=== PATIENT | male | born 1975 | race Caucasian/White ===

== ENCOUNTER 2020-02-28 12:40 | Emergency (ER) | payer SELFPAY ==
[~2020-02-28] VITALS: Ht 182.9 cm; Wt 131.5 kg
--- NOTE | 2020-02-28 13:07 | Emergency Department Note ---
History of Present Illnes History of Present Illness Chief Complaint: rectal bleeding History of Present Illness This is a 44 year old male with one week h/o black stool per rectum. Seen at [facility] earlier this week. . Onset (how long ago): week(s) Severity: moderate Duration (how long): week(s) (1) Timing of current episode: constant Progression: worsening Context: Reports recent illness Relieving factors: none Exacerbating factors: none Previous service: tests performed, re-evaluation Past Medical/Family History Physician Review I have reviewed the patient's past medical and family history. Any updates have been documented here. Past Medical History Recent Fever: No Clinical Suspicion of Infectio: No New/Unexplained Change in Ment: No Past Medical History: Hypertension Other Medical History: GASTRIC ULCERS Social History Smoking Cessation: Never Smoker Alcohol Use: None Any Illegal Drug Use: Yes (Cocaine abuse) Other Last Tetanus: UTD Review of Systems Review of Systems Constitutional: Reports no symptoms EENTM: Reports no symptoms Cardiovascular: Reports no symptoms Respiratory: Reports no symptoms Gastrointestinal: Reports other (DARK STOOL PER RECTUM) Genitourinary: Reports no symptoms Musculoskeletal: Reports no symptoms Integumentary: Reports no symptoms Neurological: Reports no symptoms Psychological: Reports no symptoms Endocrine: Reports no symptoms Hematological/Lymphatic: Reports no symptoms Physical Exam Related Data Allergies: Coded Allergies: No Known Allergies (Unverified , 05/06/17) Physical Exam CONSTITUTIONAL Constitutional: Present well-developed, Present well-nourished, Present obese HENT HENT: Present normocephalic, Present atraumatic, Present oropharynx clear/moist, Present nose normal HENT L/R: Present left ext ear normal, Present right ext ear normal EYES Eyes: Reports PERRL, Reports conjunctivae normal NECK Neck: Present ROM normal PULMONARY Pulmonary: Present effort normal, Present breath sounds normal CARDIOVASCULAR Cardiovascular: Present regular rhythm, Present heart sounds normal, Present capillary refill normal, Present normal rate GASTROINTESTINAL Abdominal: Present soft, Present nontender, Present bowel sounds normal GENITOURINARY Genitourinary: Present exam deferred SKIN Skin: Present warm, Present dry MUSCULOSKELETAL Musculoskeletal: Present ROM normal NEUROLOGICAL Neurological: Present alert, Present oriented x 3, Present no gross motor or sensory deficits PSYCHOLOGICAL Psychological: Present mood/affect normal, Present judgement normal Results Laboratory Lab results reviewed: Yes Imaging Imaging results reviewed: Yes Impressions [facility] [address] [address] Patient Name: WOO SHEPHERD MR #: [id number] : 1975 Age/Sex: 44/M Req #: [id number] Adm Physician: Ordered by: LANA RUSESLL DO Report #: [id number] Location: ER Room/Bed: Procedure: [id number] CT/CT ABDOMEN/PELVIS WO Exam Date: 02/28/20 Exam Time: 1500 REPORT STATUS: Signed EXAM: CT Abdomen and Pelvis WITHOUT intravenous contrast INDICATION: Generalized abdominal pain COMPARISON: 04/01/2015 TECHNIQUE: Abdomen and pelvis were scanned utilizing a multidetector helical scanner from the lung base to the pubic symphysis without administration of IV contrast. Coronal and sagittal reformations were obtained. Routine technique was performed. IV CONTRAST: None ORAL CONTRAST: None COMPLICATIONS: None RADIATION DOSE: Total DLP: 931 mGy*cm Dose modulation, iterative reconstruction, and/or weight based adjustment of the mA/kV was utilized to reduce the radiation dose to as low as reasonably achievable. FINDINGS: Limited evaluation due to lack of IV and oral contrast. LOWER THORAX: There is a 5 mm solid lung nodule at the left lung base, stable compared to 2015 exam. HEPATOBILIARY: No focal hepatic lesions. No biliary ductal dilatation. The gallbladder appears unremarkable. SPLEEN: No splenomegaly. PANCREAS: No focal masses or ductal dilatation. ADRENALS: 1.4 cm left medial adrenal limb nodule is noted with internal Hounsfield of approximately 1 consistent with an adenoma. Right adrenal gland is unremarkable. KIDNEYS/URETERS: Negative for hydronephrosis, perinephric stranding or obstructing calculus. PELVIC ORGANS/BLADDER: Urinary bladder is unremarkable. Prostate is within normal limits for size. PERITONEUM / RETROPERITONEUM: No free air or fluid. LYMPH NODES: No lymphadenopathy. VESSELS: Unremarkable. GI TRACT: Limited due to lack of IV and oral contrast. Normal appendix is noted. Stomach and distal colon are decompressed limiting evaluation. No surrounding inflammatory changes are identified. Negative for obstruction BONES AND SOFT TISSUES: Negative for acute osseous abnormality. No suspicious lytic or blastic lesion is identified. Soft tissues are unremarkable. IMPRESSION: Limited noncontrast CT of the abdomen and pelvis is negative for acute process. Signed by: Derik Gallardo MD on 02/28/2020 3:34 PM Dictated By: DERIK GALLARDO MD 33 Transcribed By: REGINA on 02/28/201533 COPY TO: LANA RUSSELL DO~ Procedures 12 Lead ECG Interpretation ECG Interpretation : ECG: ECG 1 Barrel Liner: Interpreted by ED physician Date: Feb 28, 2020 Time: 13:38 Prior ECG tracings: reviewed Rate: normal BPM: 95 QRS axis: normal Conduction: right bundle branch block ST segments normal: Yes T waves normal: No T wave inversion: V1, V2, V3 Pacin% capture Clinical Impression: non-specific ECG Assessment & Plan Medical Decision Making MDM Diff Dx : colitis, gastric ulcers, peptic ulcers , Cancer, colitis, hemorrhoids, fissure, av fistula Assessment & Plan Final Impression: (1) Lower GI bleed Depart Disposition: HOME, SELF-CARE LANA RUSSELL DO Feb 28, 2020 13:07
--- OUTSIDE RECORDS SUMMARY | 2020-02-28 13:51 | XMS REPORT | Clinical Summary ---
Author Author [facility] Organization [facility] Address Unknown Phone Unavailable Care Team Providers Care [facility] Nurse Name Role Phone PCP Unavailable Allergies Comments Active Allergy Reactions Severity Noted Date Tongue swelling Penicillins Swelling 04/13/2019 Medications End Date Status Medication Sig Dispensed Refills Start Date Active metFORMIN (GLUCOPHAGE) Take 500 mg 0 500 mg tablet by mouth 2 times daily (with meals). Active Omeprazole Magnesium Take 20 mg by 0 (PRILOSEC OTC) 20 mg mouth daily. delayed release tablet Active traMADol (ULTRAM) 50 mg Take 1 tablet 15 tablet 0 tabletIndications: by mouth 9 Scrotal pain every 8 hours as needed for Pain. 02/28/2019 omeprazole (PRILOSEC) 20 Take 1 30 capsule 0 0 mg delayed release capsule by 9 capsuleIndications: mouth daily Epigastric pain for 30 days. 07/15/2019 levoFLOXacin (LEVAQUIN) Take 1 tablet 10 tablet 0 500 mg tabletIndications: by mouth 9 Scrotal pain daily for 10 days. Active Problems Problem Noted Date Abnormal EKG 08/10/2017 Atypical chest pain 08/10/2017 Orthopnea 08/10/2017 Lower extremity edema 08/10/2017 Left-sided weakness 05/12/2017 Acute midline low back pain 05/12/2017 Scrotal pain Encounters Care Team Description Date Type Specialty Tamra Loja MD Scrotal pain (Primary Dx) 07/04/2019 Emergency Emergency Medicine - 07/05/2019 Carlos Stokes Camila 04/13/2019 Hospital Cardiology Encounter after 02/27/2019 Social History Date Tobacco Use Types Packs/Day Years Used Never Assessed Sex Assigned at Date Recorded Not on file Industry Job Start Date Occupation Not on file Not on file Not on file Travel End Travel History Travel Start No recent travel history available. Last Filed Vital Signs Reading Time Taken Comments Vital Sign 118/53 07/05/2019 3:00 AM [employer] Blood Pressure 74 07/05/2019 3:00 AM [employer] Pulse 36.8 C (98.3 F) 07/05/2019 3:00 AM [employer] Temperature 18 07/05/2019 3:00 AM [employer] Respiratory Rate 99% 07/05/2019 3:00 AM [employer] Oxygen Saturation - - Inhaled Oxygen Concentration - - Weight - - Height - - Body Mass Index Plan of Treatment Health Maintenance Due Date Last Done Comments IMM Influenza Seasonal 04/10/2020Apr to September (>/= 19 yrs) Procedures Comments Procedure Name Priority Date/Time Associated Diag nosis DUPLEX DOPPLER SCROTUM STAT 07/04/2019 Scrotal pain COMPLETE 11:10 PM [employer] U/S SCROTUM STAT 07/04/2019 Scrotal pain 11:10 PM [employer] BMP POC Routine 07/04/2019 10:03 PM [employer]GEMENT [employer] CHLAM/GC DNA AMPLI STAT 07/04/2019 9:50 PM [employer] IN[employer] LIVER PROFILE STAT 07/04/2019 9:50 PM [employer] URINALYSIS STAT 07/04/2019 9:50 PM [employer] URINALYSIS STAT 07/04/2019 9:50 PM [employer] IN[employer]CTOR CBC (WITHOUT STAT 07/04/2019 DIFFERENTIAL) 9:50 PM [employer] IN[employer] TRANSTHORACIC ECHO (TTE) Routine 04/13/2019 Abnor mal EKG 8:18 AM CDT Atypical chest pain Orthopnea Lower extremity edema after 02/27/2019 Results * DUPLEX DOPPLER SCROTUM COMPLETE (07/04/2019 11:10 PM H[employer]) Specimen Impressions Performed At IMPRESSION: SMS 1. No evidence of testicular torsion. 2. Right epididymitis. Associated rig ht scrotal pyocele. 3. Small left hydrocele. 4. Bilateral varicoceles. Dictated By: Roe Joyner MD, 1 09/04/2018 11:56 PM I have reviewed the study and agree wit h the findings in this report. Signed By: Michael Rivas MD, 019 12:41 AM Narrative Performed At EXAM: Scrotal Ultrasound with Duplex SMS INDICATION: right scrotal pain and s welling COMPARISON: None TECHNIQUE: Transverse and longitudinal images were obtained of the scrotum with grayscale imaging, color D oppler and spectral waveform analysis. FINDINGS: Right testis: Size: 4 x 3 x 3.1 cm, normal in s ize. Echogenicity: Normal Mass/Cysts: None Left testis: Size: 4.3 x 2.2 x 2.8 cm, normal in size. Echogenicity: Normal Mass/Cysts: None Epididymis: Appearance: Right Epididymal head 2.1 x 1.0 x 1.6 cm. The epididymal tail is boggy and shows diff usely increased vascularity The left epididymal head measures 1.1 x 0.7 x 0.9 cm. No focal lesions. Normal vascularity. Mass/Cysts: 0.2 x 0.3 x 0.2 cm ri ght epididymal head anechoic focus, consistent with a simple cyst ve rsus spermatocele. Extratesticular: Masses: None Hydrocele: Moderate right complex hydro silvina with echogenic internal nonvascular septations. Small left hydr ocele. Varicocele: Bilateral varicoceles. Doppler: Normal arterial flow to both testes and symmetrical flow on color Doppler evaluation is seen. No evidence of testicular torsion. Procedure Note Interface, Rad/Mammog In - 07/05/2019 12:46 AM [employer] EXAM: Scrotal Ultrasound with Duplex INDICATION: right scrotal pain and swelling COMPARISON: None TECHNIQUE: Transverse and longitudinal images were obtained of the scrotum with grayscale imaging, color Doppler and spectral waveform analysis. FINDINGS: Right testis: Size: 4 x 3 x 3.1 cm, normal in size. Echogenicity: Normal Mass/Cysts: None Left testis: Size: 4.3 x 2.2 x 2.8 cm, normal in size. Echogenicity: Normal Mass/Cysts: None Epididymis: Appearance: Right Epididymal head 2.1 x 1.0 x 1.6 cm. The epididymal tail is boggy and shows diffusely increased vascularity The left epididymal head measures 1.1 x 0.7 x 0.9 cm. No focal lesions. Normal vascularity. Mass/Cysts: 0.2 x 0.3 x 0.2 cm right epididymal head anechoic focus, consistent with a simple cyst versus spermatocele. Extratesticular: Masses: None Hydrocele: Moderate right complex hydrocele with echogenic internal nonvascular septations. Small left hydrocele. Varicocele: Bilateral varicoceles. Doppler: Normal arterial flow to both testes and symmetrical flow on color Doppler evaluation is seen. No evidence of testicular torsion. IMPRESSION IMPRESSION: 1. No evidence of testicular torsion. 2. Right epididymitis. Associated right scrotal pyocele. 3. Small left hydrocele. 4. Bilateral varicoceles. Dictated By: Roe Joyner MD, 07/04/2019 11:56 PM I have reviewed the study and agree with the findings in this report. Signed By: Michael Rivas MD, 07/05/2019 12:41 AM Performing Organization Address City/State/Zipcode Ph one Number SMS * U/S SCROTUM (07/04/2019 11:10 PM H[employer] IN[employer]) Specimen Impressions Performed At IMPRESSION: SMS 1. No evidence of testicular torsion. 2. Right epididymitis. Associated rig ht scrotal pyocele. 3. Small left hydrocele. 4. Bilateral varicoceles. Dictated By: Roe Joyner MD, 1 09/04/2018 11:56 PM I have reviewed the study and agree wit h the findings in this report. Signed By: Michael Rivas MD, 019 12:41 AM Narrative Performed At EXAM: Scrotal Ultrasound with Duplex [facility] INDICATION: right scrotal pain and s welling COMPARISON: None TECHNIQUE: Transverse and longitudinal images were obtained of the scrotum with grayscale imaging, color D oppler and spectral waveform analysis. FINDINGS: Right testis: Size: 4 x 3 x 3.1 cm, normal in s ize. Echogenicity: Normal Mass/Cysts: None Left testis: Size: 4.3 x 2.2 x 2.8 cm, normal in size. Echogenicity: Normal Mass/Cysts: None Epididymis: Appearance: Right Epididymal head 2.1 x 1.0 x 1.6 cm. The epididymal tail is boggy and shows diff usely increased vascularity The left epididymal head measures 1.1 x 0.7 x 0.9 cm. No focal lesions. Normal vascularity. Mass/Cysts: 0.2 x 0.3 x 0.2 cm ri ght epididymal head anechoic focus, consistent with a simple cyst ve rsus spermatocele. Extratesticular: Masses: None Hydrocele: Moderate right complex hydro silvina with echogenic internal nonvascular septations. Small left hydr ocele. Varicocele: Bilateral varicoceles. Doppler: Normal arterial flow to both testes and symmetrical flow on color Doppler evaluation is seen. No evidence of testicular torsion. Procedure Note Interface, Rad/Mammog In - 07/05/2019 12:46 AM [employer] IN[employer] EXAM: Scrotal Ultrasound with Duplex INDICATION: right scrotal pain and swelling COMPARISON: None TECHNIQUE: Transverse and longitudinal images were obtained of the scrotum with grayscale imaging, color Doppler and spectral waveform analysis. FINDINGS: Right testis: Size: 4 x 3 x 3.1 cm, normal in size. Echogenicity: Normal Mass/Cysts: None Left testis: Size: 4.3 x 2.2 x 2.8 cm, normal in size. Echogenicity: Normal Mass/Cysts: None Epididymis: Appearance: Right Epididymal head 2.1 x 1.0 x 1.6 cm. The epididymal tail is boggy and shows diffusely increased vascularity The left epididymal head measures 1.1 x 0.7 x 0.9 cm. No focal lesions. Normal vascularity. Mass/Cysts: 0.2 x 0.3 x 0.2 cm right epididymal head anechoic focus, consistent with a simple cyst versus spermatocele. Extratesticular: Masses: None Hydrocele: Moderate right complex hydrocele with echogenic internal nonvascular septations. Small left hydrocele. Varicocele: Bilateral varicoceles. Doppler: Normal arterial flow to both testes and symmetrical flow on color Doppler evaluation is seen. No evidence of testicular torsion. IMPRESSION IMPRESSION: 1. No evidence of testicular torsion. 2. Right epididymitis. Associated right scrotal pyocele. 3. Small left hydrocele. 4. Bilateral varicoceles. Dictated By: Roe Joyner MD, 07/04/2019 11:56 PM I have reviewed the study and agree with the findings in this report. Signed By: Michael Rivas MD, 07/05/2019 12:41 AM Performing Organization Address City/State/Zipcode Ph one Number SMS * POCT BMP POC docked device (07/04/2019 10:03 PM H[employer]NAG[employer] IN[employer]CTOR) Sodium POC 139 136 - 145 mmol/L [facility] Potassium POC 4.0 3.5 - 5.1 mmol/L [facility] Chloride POC 102 98 - 107 mmol/L [facility] TCO2 POC 27 21 - 32 mmol/L [facility] Urea Nitrogen 15 7 - 18 mg/dL [facility] Creatinine POC 0.9 0.6 - 1.3 mg/dL [facility] Glucose POC 113 (H) 74 - 106 mg/dL [facility] Ionized Calcium 1.20 1.15 - 1.29 mmol/L [facility] GFR, Estimated >90 >=90 mL/min/1.73 m2 [facility] Hemoglobin POC 13.3Comment: --- 12 - 16 g/dL [facility] Hematocrit POC 39.0 37.0 - 47.0 % [facility] Specimen Blood, venous Performing Organization Address [facility] one Number [facility] [address] [place] [address] * Urinalysis (07/04/2019 9:50 PM HUM[employer] MANAGEMENT INSTRUCTOR) Pathologist [facility] Color Straw Colorless, Straw, [facility] Yellow [facility] Clarity Clear Clear [facility] Spec Nye, 1.010 1.001 - 1.035 [facility] pH, Ur 7.0 5.0 - 8.0 [facility] Protein, Ur Negative Negative mg/dL [facility] Glucose, Ur Negative Negative mg/dL [facility] Ketone, Ur Negative Negative mg/dL [facility] Bilirubin, Ur Negative Negative mg/dL [facility] Nitrite, Ur Negative Negative [facility] Leukocyte Negative Negative mg/dL [facility] Blood, Ur Negative Negative mg/dL [facility] Urobilinogen, <1.0 <1.0 EU/dL [facility] Specimen Urine Performing Organization Address [facility] one Number [facility] [address] [place] [address] * Chlam/GC DNA Amplification (07/04/2019 9:50 PM HUMAN [employer]OURCE MANAGEMENT INSTRUCTOR) Pathologist [facility] Chlamydia Negative Negative [facility] trachomatis [facility] N. gonorrhoeae Negative Negative [facility] Specimen Urine - Urethra Narrative Performed At This test utilizes Hologic Aptima Combo 2 Assay for target amplification of rRNA [facility] for the qualitative detection of Chlamy raysa trachomatis and Neisseria gonorrhoeae. Performing Organization Address [facility] one Number [facility] [address] [place] [address] * Liver Profile (07/04/2019 9:50 PM HUM[employer] MANAGEMENT INSTRUCTOR) Total Protein 7.5 6.0 - 8.3 g/dL [facility] Bilirubin, 0.3 0.2 - 1.2 mg/dL [facility] Total [facility] Alkaline 87 34 - 104 U/L [facility] Phosphatase [facility] AST 9 (L) 13 - 39 U/L [facility] Direct 0.1 0.0 - 0.2 mg/dL [facility] Bilirubin [facility] ALT 12 7 - 52 U/L [facility] Albumin 4.4 4.2 - 5.5 g/dL [facility] Specimen Blood Performing Organization Address [facility] one Number [facility] [address] [place] [address] * CBC (without differential) (07/04/2019 9:50 PM HUMAN RESOURCE MANAGEMENT INSTRUCTOR) WBC 9.1 4.5 - 12.0 K/uL [facility] RBC 4.08 (L) 4.60 - 6.20 M/uL [facility] Hemoglobin 12.8 (L) 14.0 - 18.0 g/dL [facility] Hematocrit 37.9 (L) 40.0 - 54.0 % [facility] MCV 92.9 (H) 82.0 - 92.0 fL [facility] MCH 31.4 (H) 27.0 - 31.0 pg [facility] MCHC 33.8 32.0 - 36.0 g/dL [facility] RDW 40.5 35.1 - 43.9 fL [facility] Platelet 237 150 - 400 K/uL [facility] Mean Platelet 11.2 9.4 - 12.4 fL [facility] Volume [facility] Percent NRBC 0.0 % [facility] Specimen Blood Performing Organization Address [facility] one Number [facility] [address] [place] [address] [phone] * TRANSTHORACIC ECHO (TTE) (04/13/2019 8:18 AM CDT) TRANSTHORACIC Transthoracic SMS ECHO (TTE) Echo Report FAROOQ ESTES Age: 43 Gender: M : 1975 Exam Date: 04/13/2019 08:18 Exam Location: [facility] Echo Ordering Phys: FOX ABARCA Referring Phys: SINAI LOMAS Reading Phys: Stone Pritchett MD Fellow Phys: Fellow Phys: Carousel Attendant: Madeline Steele Reason For Exam: Indications: Worsening orthopnea and BLE edema - abnormal EKG, Dyspnea, other forms ICD-9 Codes: R06.09 Exam Type: TRANSTHORACIC ECHO (TTE) Procedure CPT: 07121 Addtional CPT: Ht (in): 71 BSA: 2.70 HR: 61 Rhythm: Wt (lb): 306 BP: 118 / 80 Technical Quality: Adequate with contrast History: MEASUREMENTS Normal ranges based on 95% confidence intervals for adults, some normal patients may fall outside of this range especially when indexing for BSA 2D ECHO LV Diastolic Diameter PLAX 5.2 cm 4.2-5.8 (M) / 3.8-5.2 (F) LV Systolic Diameter PLAX 3.7 cm 2.5-4.0 (M) / 2.2-3.5 (F) LV Fractional Shortening PLAX 28.9 % IVS Diastolic Thickness 0.85 cm 0.6-1.0 (M) / 0.6-0.9 (F) LVPW Diastolic Thickness 1.1 cm 0.6-1.0 (M) / 0.6-0.9 (F) LV Relative Wall Thickness 0.38 <= 0.42 LVOT Diameter 2.2 cm LA Systolic Diameter LX 3.3 cm LV Diastolic Volume MOD BP 150 cm 62-150 cm (M) / 46-106 cm (F) LV Systolic Volume MOD BP 64.6 cm 21-61 cm (M) / 14-42 cm (F) LV Ejection Fraction MOD BP 56.8 % 52-72 (M) / 54-74 (F) LV Stroke Volume MOD BP 85.2 cm LV Cardiac Output MOD BP 5195 cm/min LV Cardiac Index MOD BP 1924 cm/minm LA Volume 72.1 cm LA Volume Index 26.7 cm/m 16 - 34 cm/m LV Mass by linear method 192 g LV Mass by linear method Index 71.2 g/m DOPPLER LVOT Peak Velocity 108 cm/s LVOT Peak Gradient 4.7 mmHg LVOT Mean Velocity 66.2 cm/s LVOT Mean Gradient 2 mmHg LVOT Velocity Time Integral 22.8 cm LVOT Stroke Volume 87.6 cm Mitral E Point Velocity 101 cm/s Mitral A Point Velocity 65 cm/s Mitral E to A Ratio 1.6 TR Peak Velocity 216 cm/s TR Peak Gradient 18.7 mmHg LV E' Lateral Velocity 14.3 cm/s Mitral E to LV E' Lateral Ratio 7.1 LV E' Septal Velocity 9.5 cm/s Mitral E to LV E' Septal Ratio 10.7 FINDINGS Left Ventricle The left ventricle is normal in size. Normal LV wall thickness. LV systolic function is normal. LVEF is 55-60%. There are no regional wall motion abnormalities. There is normal LV relaxation with normal filling pressures. Right Ventricle The right ventricle is normal in size and systolic function. Right Atrium The right atrium is normal in size. Left Atrium The left atrium is normal in size. IAS Mitral Valve Structurally normal mitral valve without significant stenosis or prolapse. There is no mitral regurgitation. Aortic Valve The aortic valve opens well. There is no aortic stenosis. There is no aortic regurgitation. Tricuspid Valve Structurally normal tricuspid valve without significant stenosis. There is trace tricuspid regurgitation. Insufficient TR jet to estimate pulmonary artery systolic pressure. Pulmonic Valve Structurally normal pulmonic valve without significant stenosis. There is trace pulmonic regurgitation. Pericardium No pericardial effusion. Aorta Normal aortic root for body surface area. IVC RA pressure is 0-5 mmHg. CONCLUSIONS The left ventricle is normal in size. Normal LV wall thickness. LV systolic function is normal. LVEF is 55-60%. There are no regional wall motion abnormalities. There is normal LV relaxation with normal filling pressures. The right ventricle is normal in size and systolic function. The left atrium is normal in size. Insufficient TR jet to estimate pulmonary artery systolic pressure. RA pressure is 0-5 mmHg. No prior study for comparison. Stone Pritchett MD (Electronically Signed) Final Date: 13 April 2019 12:11 2D ECHO LV Diastolic Diameter PLAX 5.2 cm 4.2-5.8 (M) / 3.8-5.2 (F) LV Systolic Diameter PLAX 3.7 cm 2.5-4.0 (M) / 2.2-3.5 (F) LV Fractional Shortening PLAX 28.9 % IVS Diastolic Thickness 0.85 cm 0.6-1.0 (M) / 0.6-0.9 (F) LVPW Diastolic Thickness 1.1 cm 0.6-1.0 (M) / 0.6-0.9 (F) LV Relative Wall Thickness 0.38 <= 0.42 LVOT Diameter 2.2 cm LA Systolic Diameter LX 3.3 cm LV Diastolic Volume MOD BP 150 cm 62-150 cm (M) / 46-106 cm (F) LV Systolic Volume MOD BP 64.6 cm 21-61 cm (M) / 14-42 cm (F) LV Ejection Fraction MOD BP 56.8 % 52-72 (M) / 54-74 (F) LV Stroke Volume MOD BP 85.2 cm LV Cardiac Output MOD BP 5195 cm/min LV Cardiac Index MOD BP 1924 cm/minm LA Volume 72.1 cm LA Volume Index 26.7 cm/m 16 - 34 cm/m LV Mass by linear method 192 g LV Mass by linear method Index 71.2 g/m DOPPLER LVOT Peak Velocity 108 cm/s LVOT Peak Gradient 4.7 mmHg LVOT Mean Velocity 66.2 cm/s LVOT Mean Gradient 2 mmHg LVOT Velocity Time Integral 22.8 cm LVOT Stroke Volume 87.6 cm Mitral E Point Velocity 101 cm/s Mitral A Point Velocity 65 cm/s Mitral E to A Ratio 1.6 TR Peak Velocity 216 cm/s TR Peak Gradient 18.7 mmHg LV E' Lateral Velocity 14.3 cm/s Mitral E to LV E' Lateral Ratio 7.1 LV E' Septal Velocity 9.5 cm/s Mitral E to LV E' Septal Ratio 10.7 Specimen Performing Organization Address City/State/Zipcode Ph one Number SMS after 02/27/2019 Insurance Type Payer Benefit Subscriber ID Effective Phone Address Plan / Dates Group [facility] TDCJ xxxxxxx 2019 [address] [place] [address]
--- OUTSIDE RECORDS SUMMARY | 2020-02-28 13:51 | XMS REPORT | Continuity of Care Document ---
Author Author [facility] t Organization [facility] Address [address] [place] [address] Phone Unavailable Care Team Providers Care Audio Director Name Role Phone Freedom HA, Tamra Attphys Carlos Stkoes Attphys Unavailable Madeline Steele Attphys Unavailable Ag HOLLAND Attphys Unavailable Payers Payer Name Policy Type Policy Number Effective Date Expiration Date Lizy reyes [facility] CARETDCJ [id number] [place] [address] xxxxxxx 2019 00: 00:00 [facility] Problems Condition Name Condition Details Condition Category Status Onset Date Resolution Date Last Treatment Date Treating Clinician Comments Source Abnormal EKG Abnormal EKG Disease Active 2017-08-10 00:00:00 [facility] Atypical chest pain Atypical chest pain Disease Active 2017-08-10 00:00 :00 [facility] Orthopnea Orthopnea Disease Active 2017-08-10 00:00:00 [facility] Lower extremity edema Lower extremity edema Disease Active 201 02-08-31 00:00:00 [facility] Left-sided weakness Left-sided weakness Disease Active 2017-05-12 00:00 :00 [facility] Acute midline low back pain Acute midline low back pain Disease Active 2017-05-12 00:00:00 [facility] Scrotal pain Scrotal pain Disease Active [facility] Allergies, Adverse Reactions, Alerts Allergy Name Allergy Type Status Severity Reaction(s) Onset Date Inacti ve Date Treating Clinician Comments Source Penicillins Propensity to adverse reactions to drug Active Swelling 2019-04-13 00:00:00 Tongue swelling [facility] metformin DA Active SV 2018-07-18 00:00:00 [facility] levofloxacin DA Active SV 2018-07-18 00:00:00 [facility] No Known Allergies DA Active U 2015-03-12 00:00:00 [facility] Social History Social Habit Start Date Stop Date Quantity Comments Source Sex Assigned At [facility] Medications Ordered Medication Name Filled Medication Name Start Date Stop Da te Current Medication? Ordering Clinician Indication Dosage Frequency Signature (SIG) Comments Components Source metFORMIN (GLUCOPHAGE) 500 mg tablet 2019-07-05 00:46:36 Ye s 500mg Take 500 mg by mouth 2 times daily (with meals). [facility] Omeprazole Magnesium (PRILOSEC OTC) 20 mg delayed release ta blet 2019-07-05 00:46:36 Yes 20mg QD Take 20 mg by mouth daily. [facility] traMADol (ULTRAM) 50 mg tablet 2019-07-05 00:00:00 Yes Scrotal pain 50mg Take 1 tablet by mouth every 8 hours as needed for Pain. [facility] levoFLOXacin (LEVAQUIN) 500 mg tablet 2019-07-05 00:00 :00 2019-07-15 23:59:00 No Scrotal pain 500mg QD Take 1 tablet by mouth daily for 10 days. [facility] omeprazole (PRILOSEC) 20 mg delayed release capsule 2019-01-29 00:00:00 2019-02-28 23:59:00 No Epigastric pain 20mg QD Take 1 capsule by mouth daily for 30 days. [facility] Vital Signs Vital Name Observation Time Observation Value Comments Source Systolic blood pressure 2019-07-05 03:00:00 118 mm[Hg] [facility] Diastolic blood pressure 2019-07-05 03:00:00 53 mm[Hg] [facility] Heart rate 2019-07-05 03:00:00 74 /min [facility] Body temperature 2019-07-05 03:00:00 36.83 Jill [facility] Respiratory rate 2019-07-05 03:00:00 18 /min [facility] Oxygen saturation in Arterial blood by Pulse oximetry 2018-07 03:00:00 99 /min [facility] Procedures Procedure Date / Time Performed Performing Clinician Sourc e U/S SCROTUM 2019-07-04 23:10:00 Zeb Powell [facility]th DUPLEX DOPPLER SCROTUM COMPLETE 2019-07-04 23:10:00 Awa Loja [facility] BMP POC 2019-07-04 22:03:00 [facility] CBC (WITHOUT DIFFERENTIAL) 2019-07-04 21:50:00 PowellDavid [facility] URINALYSIS 2019-07-04 21:50:00 Zeb Powell [facility] URINALYSIS 2019-07-04 21:50:00 PowellZeb [facility] LIVER PROFILE 2019-07-04 [facility]AM/GC DNA AMPLI 2019-07-04 21:50:[address] [facility]TTE[facility] 2019-04-13 08:18:00 Miriam Franco [facility] Plan of Care Planned Activity Planned Date Details Comments Source Future Scheduled Test 2020-04-10 00:00:00 IMM Influenza Seas onal Apr to September (>/= 19 yrs) [code = IMM Influenza Seasonal Apr to September (>/= 19 yrs)] [facility] Encounters Start Date/Time End Date/Time Encounter Type Admission Type [facility] Facility Care Department Encounter ID Source 2019-07-04 22:30:28 2019-07-04 22:30:28 Emergency [facility] [id number] [facility] 2019-07-04 22:30:26 2019-07-04 22:30:26 Emergency [facility] [id number] [facility] 2019-07-04 17:39:47 2019-07-04 17:39:47 Emergency [facility] [id number] [facility] 2019-04-19 00:00:00 2019-04-19 00:00:00 Outpatient [facility] [id number] [facility] 2019-04-13 08:14:26 2019-04-13 08:14:26 Outpatient [facility] [id number] [facility] 2019-03-09 00:00:00 2019-03-09 00:00:00 Outpatient [facility] [id number] [facility] 2019-02-13 00:00:00 2019-02-13 00:00:00 Outpatient [facility] [id number] [facility] 2019-01-29 07:16:18 2019-01-29 07:16:18 Emergency [facility] [id number] [facility] 2017-11-02 00:00:00 2017-11-02 00:00:00 Outpatient [facility] [id number] [facility] 2017-10-25 00:00:00 2017-10-25 00:00:00 Outpatient [facility] [id number] [facility] 2017-10-10 00:00:00 2017-10-10 00:00:00 Outpatient [facility] [id number] [facility] 2017-09-30 00:00:00 2017-09-30 00:00:00 Outpatient [facility] [id number] [facility] 2017-09-26 00:00:00 2017-09-26 00:00:00 Outpatient [facility] [id number] [facility] 2017-09-13 00:00:00 2017-09-13 00:00:00 Outpatient [facility] [id number] [facility] 2017-08-31 00:00:00 2017-08-31 00:00:00 Outpatient [facility] [id number] [facility] 2017-08-31 00:00:00 2017-08-31 00:00:00 Outpatient [facility] [id number] [facility] 2017-08-25 00:00:00 2017-08-25 00:00:00 Outpatient [facility] [id number] [facility] 2017-08-10 13:35:17 2017-08-10 13:35:17 Outpatient [facility] [id number] [facility] 2017-05-13 03:56:09 2017-05-13 03:56:09 Emergency [facility] [id number] [facility] 2017-05-13 01:48:40 2017-05-13 01:48:40 Emergency [facility] [id number] [facility] 2017-05-12 19:13:59 2017-05-12 19:13:59 Emergency [facility] [id number] [facility] 2017-05-12 17:07:44 2017-05-12 17:07:44 Emergency [facility] [id number] [facility] 2017-05-12 17:07:42 2017-05-12 17:07:42 Emergency [facility] [id number] [facility] 2017-05-12 16:38:47 2017-05-12 16:38:47 Emergency [facility] [id number] [facility] 2017-05-12 16:38:44 2017-05-12 16:38:44 Emergency [facility] [id number] [facility] 2017-05-12 13:14:53 2017-05-12 13:14:53 Emergency [facility] [id number] [facility] Results Test Description Test Time Test Comments Results Result Comments Source URINALYSIS COMPLETE 2020-02-04 06:53:00 Test Item UA COLOR (test code = COLU) DARK YELLOW YELLOW A UA APPEARANCE (test code = APPU) HAZY CLEAR A UA GLUCOSE DIPSTICK (test code = DGLUU) norm mg/dL NEGATIVE UA BILIRUBIN DIPSTICK (test code = BILU) NEGATIVE mg/dL NEGATIVE UA KETONE DIPSTICK (test code = KETU) 5 (Trace) mg/dL NEGATIVE A UA SPECIFIC GRAVITY (test code = SGU) 1.025 1.001-1.035 UA BLOOD DIPSTICK (test code = AMERICO) 10 (Trace) Luan/uL NEGATIVE A UA PH DIPSTICK (test code = EUGENE) 5.0 5.0-8.0 UA PROTEIN DIPSTICK (test code = PROU) 15 (TRACE) mg/dL Neg-15 A UA UROBILINIOGEN DIPSTICK (test code = URO) 1 mg/dL 0.0-0.2 A UA NITRITE DIPSTICK (test code = ROSE) NEGATIVE NEGATIVE UA LEUKOCYTE ESTERASE DIPSTICK (test code = LEUU) 100 Nan/uL (1+) u L NEGATIVE A UA WBC (test code = WBCU) 21-50 per HPF 0-5 A UA RBC (test code = RBCU) 3-5 per HPF 0-5 A UA EPITHELIAL CELLS (test code = EPIU) Moderate (5-10/hpf) per HPF Few UA BACTERIA (test code = BACU) FEW per HPF NONE UA MUCUS (test code = MUCU) MODERATE per LPF NONE-FEW A Urine Source? Clean CatchDRUGS OF ABUSE SCREEN [id number] 06:53:00* Test Item Value Reference Range Interpretation Comments URN COCAINE (test code = COCAURN) NEGATIVE NEGATIVE URN CANNABINOIDS (test code = CANNABURN) POSITIVE NEGATIVE A URN AMPHETAMINE (test code = AMPHETURN) POSITIVE NEGATIVE A URN BARBITURATE (test code = BARBITURN) NEGATIVE NEGATIVE URN BENZODIAZEPINE (test code = BENZOURN) NEGATIVE NEGATIVE URN OPIATES (test code = OPIATURN) NEGATIVE NEGATIVE URN PHENCYCLIDINE (PCP) (test code = PHENCURN) NEGATIVE NEGATIV E Urine Source? Clean CatchBASIC METABOLIC [id number] 06:53:00* Test Item Value Reference Range Interpretation Comments SODIUM (test code = NA) 134 mmol/L 135-148 L POTASSIUM (test code = K) 3.9 mmol/L 3.5-5.1 N CHLORIDE (test code = CL) 99 mmol/L 101-109 L CARBON DIOXIDE (test code = CO2) 28.6 mmol/L 21-32 N ANION GAP (test code = GAP) 10 mmol/L 10-20 N GLUCOSE (test code = GLU) 147 mg/dL 74-106 H BLOOD UREA NITROGEN (test code = BUN) 10 mg/dL 3-21 N GLOMERULAR FILTRATION RATE (test code = GFR) > 60 mL/min >=60 Estimated GFR by using Modified MDRD formula.Chronic kidney disease is defined as either kidney damageor GFR <60 mL/min/1.73 m2 for >3 months. CREATININE (test code = CREAT) 1.17 mg/dL 0.55-1.3 N BUN/CREATININE RATIO (test code = BUN/CREA) 8.5 10-20 L CALCIUM (test code = CA) 8.6 mg/dL 8.4-10.2 N HEPATIC FUNCTION [id number] 06:53:00* Test Item Value Reference Range Interpretation Comments TOTAL PROTEIN (test code = PROT) 7.3 g/dL 6.5-8.4 N ALBUMIN (test code = ALB) 3.4 g/dL 3.4-4.8 N GLOBULIN (test code = GLOB) 3.9 G/DL 1-10 N ALBUMIN/GLOBULIN RATIO (test code = A/G) 0.9 RATIO 0.75-1.50 N BILIRUBIN TOTAL (test code = BILT) 0.40 mg/dL 0.0-1.0 N BILIRUBIN DIRECT (test code = BILD) 0.10 mg/dL 0.0-0.30 N SGOT/AST (test code = AST) 16 U/L 6-32 N SGPT/ALT (test code = ALT) 39 U/L 12-78 N N ote: Change in REFERENCE RANGE due to new reagent method. ALKALINE PHOSPHATASE TOTAL (test code = ALKP) 104 U/L 38-126 N [id number] 06:53:00* Test Item Value Reference Range Interpretation Comments LIPASE (test code = LIP) 203 U/L 128-270 N [id number] 06:53:00* Test Item Value Reference Range Interpretation Comments MAGNESIUM (test code = MAG) 2.0 mg/dL 1.6-2.3 N [id number] 06:53:00* Test Item Value Reference Range Interpretation Comments TROPONIN-I (test code = TROPI) <0.015 ng/mL 0.00-0.056 N URINALYSIS [id number] 06:52:00* Test Item Value Reference Range Interpretation Comments UA COLOR (test code = COLU) DARK YELLOW YELLOW A UA APPEARANCE (test code = APPU) HAZY CLEAR A UA GLUCOSE DIPSTICK (test code = DGLUU) norm mg/dL NEGATIVE UA BILIRUBIN DIPSTICK (test code = BILU) NEGATIVE mg/dL NEGATIVE UA KETONE DIPSTICK (test code = KETU) 5 (Trace) mg/dL NEGATIVE A UA SPECIFIC GRAVITY (test code = SGU) 1.025 1.001-1.035 UA BLOOD DIPSTICK (test code = AMERICO) 10 (Trace) Luan/uL NEGATIVE A UA PH DIPSTICK (test code = EUGENE) 5.0 5.0-8.0 UA PROTEIN DIPSTICK (test code = PROU) 15 (TRACE) mg/dL Neg-15 A UA UROBILINIOGEN DIPSTICK (test code = URO) 1 mg/dL 0.0-0.2 A UA NITRITE DIPSTICK (test code = ROSE) NEGATIVE NEGATIVE UA LEUKOCYTE ESTERASE DIPSTICK (test code = LEUU) 100 Nan/uL (1+) u L NEGATIVE A UA WBC (test code = WBCU) 21-50 per HPF 0-5 A UA RBC (test code = RBCU) 3-5 per HPF 0-5 A UA EPITHELIAL CELLS (test code = EPIU) Moderate (5-10/hpf) per HPF Few UA BACTERIA (test code = BACU) FEW per HPF NONE UA MUCUS (test code = MUCU) MODERATE per LPF NONE-FEW A Urine Source? Clean CatchDRUGS OF ABUSE SCREEN [id number] 06:52:00* Test Item Value Reference Range Interpretation Comments URN COCAINE (test code = COCAURN) NEGATIVE URN CANNABINOIDS (test code = CANNABURN) NEGATIVE URN AMPHETAMINE (test code = AMPHETURN) NEGATIVE URN BARBITURATE (test code = BARBITURN) NEGATIVE URN BENZODIAZEPINE (test code = BENZOURN) NEGATIVE URN OPIATES (test code = OPIATURN) NEGATIVE URN PHENCYCLIDINE (PCP) (test code = PHENCURN) NEGATIV E Urine Source? Clean CatchB-TYPE NATRIURETIC [id number] 06:52:00* Test Item Value Reference Range Interpretation Comments B-TYPE NATRIURETIC PEPTIDE (test code = BNP) < 5.0 pg/mL 0-100 N URINALYSIS [id number] 06:48:00* Test Item Value Reference Range Interpretation Comments UA COLOR (test code = COLU) DARK YELLOW YELLOW A UA APPEARANCE (test code = APPU) HAZY CLEAR A UA GLUCOSE DIPSTICK (test code = DGLUU) norm mg/dL NEGATIVE UA BILIRUBIN DIPSTICK (test code = BILU) NEGATIVE mg/dL NEGATIVE UA KETONE DIPSTICK (test code = KETU) 5 (Trace) mg/dL NEGATIVE A UA SPECIFIC GRAVITY (test code = SGU) 1.025 1.001-1.035 UA BLOOD DIPSTICK (test code = AMERICO) 10 (Trace) Luan/uL NEGATIVE A UA PH DIPSTICK (test code = EUGENE) 5.0 5.0-8.0 UA PROTEIN DIPSTICK (test code = PROU) 15 (TRACE) mg/dL Neg-15 A UA UROBILINIOGEN DIPSTICK (test code = URO) 1 mg/dL 0.0-0.2 A UA NITRITE DIPSTICK (test code = ROSE) NEGATIVE NEGATIVE UA LEUKOCYTE ESTERASE DIPSTICK (test code = LEUU) 100 Nan/uL (1+) u L NEGATIVE A UA WBC (test code = WBCU) per HPF 0-5 UA RBC (test code = RBCU) per HPF 0-5 UA EPITHELIAL CELLS (test code = EPIU) per HPF Few UA BACTERIA (test code = BACU) per HPF NONE Urine Source? Clean CatchDRUGS OF ABUSE SCREEN [id number] 06:48:00* Test Item Value Reference Range Interpretation Comments URN COCAINE (test code = COCAURN) NEGATIVE URN CANNABINOIDS (test code = CANNABURN) NEGATIVE URN AMPHETAMINE (test code = AMPHETURN) NEGATIVE URN BARBITURATE (test code = BARBITURN) NEGATIVE URN BENZODIAZEPINE (test code = BENZOURN) NEGATIVE URN OPIATES (test code = OPIATURN) NEGATIVE URN PHENCYCLIDINE (PCP) (test code = PHENCURN) NEGATIV E Urine Source? Clean CatchBASIC METABOLIC [id number] 06:41:00* Test Item Value Reference Range Interpretation Comments SODIUM (test code = NA) 134 mmol/L 135-148 L POTASSIUM (test code = K) 3.9 mmol/L 3.5-5.1 N CHLORIDE (test code = CL) 99 mmol/L 101-109 L CARBON DIOXIDE (test code = CO2) 28.6 mmol/L 21-32 N ANION GAP (test code = GAP) 10 mmol/L 10-20 N GLUCOSE (test code = GLU) 147 mg/dL 74-106 H BLOOD UREA NITROGEN (test code = BUN) 10 mg/dL 3-21 N GLOMERULAR FILTRATION RATE (test code = GFR) > 60 mL/min >=60 Estimated GFR by using Modified MDRD formula.Chronic kidney disease is defined as either kidney damageor GFR <60 mL/min/1.73 m2 for >3 months. CREATININE (test code = CREAT) 1.17 mg/dL 0.55-1.3 N BUN/CREATININE RATIO (test code = BUN/CREA) 8.5 10-20 L CALCIUM (test code = CA) 8.6 mg/dL 8.4-10.2 N HEPATIC FUNCTION [id number] 06:41:00* Test Item Value Reference Range Interpretation Comments TOTAL PROTEIN (test code = PROT) gram/dL 6.4-8.2 ALBUMIN (test code = ALB) g/dL 3.4-5.0 GLOBULIN (test code = GLOB) g/dL 2.7-4.2 ALBUMIN/GLOBULIN RATIO (test code = A/G) 0.75-1.50 BILIRUBIN TOTAL (test code = BILT) mg/dL 0.2-1.2 BILIRUBIN DIRECT (test code = BILD) mg/dL 0.0-0.20 SGOT/AST (test code = AST) IUnit/L 15-37 SGPT/ALT (test code = ALT) U/L 10-69 ALKALINE PHOSPHATASE TOTAL (test code = ALKP) IUnit/L 45-117 [id number] 06:41:00* Test Item Value Reference Range Interpretation Comments LIPASE (test code = LIP) Unit/L 144-286 [id number] 06:41:00* Test Item Value Reference Range Interpretation Comments MAGNESIUM (test code = MAG) mg/dL 1.8-2.4 [id number] 06:41:00* Test Item Value Reference Range Interpretation Comments TROPONIN-I (test code = TROPI) ng/mL 0-0.045 - XR CHEST 1 [id number] 06:35:00 Name: SHANIKA SHEPHERD [facility] : 1975 Age/S:44 /M [address] [facility] Unit#:[id number] Loc: [place] [address] Phys: Osmar Alva MD Dis Date: PHONE #: [phone] Status: PRE ER FAX #: [phone] Exam Date: 02/04/2020 Reason: CHEST PAIN EXAMS: CPT CODE: [id number] XR CHEST 1 V 37007 EXAM: - XR CHEST 1 V LOCATION: C3 HISTORY: CHEST PAIN COMPARISON: 07/12/2018 FINDINGS: Single view of the chest. No indwelling lines or tubes. No pneumothorax. The lungs are clear without significant effusions. The mediastinal contours are unremarkable/unchanged. No acute osseous findings are present. IMPRESSION: No acute cardiopulmonary abnormality. at 0635 Reported and signed by: Moose Hernandez M.D. CC: Osmar Alva MD Technologist: RADHA WASHINGTON CT Trnscrpt Data: 02/04/2020 (0635) [email or web address] Orig Print D/T: S: 02/04/2020 (0601) PAGE 1 Signed Report CBC W/O [id number] 06:30:00* Test Item Value Reference Range Interpretation Comments WHITE BLOOD CELL (test code = WBC) 9.7 K/mm3 4.5-12.5 N RED BLOOD CELL (test code = RBC) 5.42 mill/mm3 4.0-5.8 N HEMOGLOBIN (test code = HGB) 17.4 gram/dL 13.0-17.5 N HEMATOCRIT (test code = HCT) 49.3 % 42.0-52.0 N MEAN CELL VOLUME (test code = MCV) 91.0 fL 80-98 N MEAN CELL HGB (test code = MCH) 32.1 picogram 27.0-33.0 N MEAN CELL HGB CONCETRATION (test code = MCHC) 35.3 gram/dL 33.0-36. 0 N RED CELL DISTRIBUTION WIDTH (test code = RDW) 12.0 % 11.6-16. 2 N RED CELL DISTRIBUTION WIDTH SD (test code = RDW-SD) 41.0 fL 37 .0-51.0 N PLATELET COUNT (test code = PLT) 267 K/mm3 150-450 N MEAN PLATELET VOLUME (test code = MPV) 10.4 fL 6.7-11.0 N Chlam/GC DNA [id number] 13:29:00* Test Item Value Reference Range Interpretation Comments Chlamydia trachomatis (test code = 05117-2) Negative Negative N. gonorrhoeae (test code = 91307-5) Negative Negative EDITH (test code = EDITH) This test utilizes Doist A ptima Combo 2 Assay for target amplification of rRNA for the qualitative detection of Chlamydia trachomatis and Neisseria gonorrhoeae. Lab Interpretation (test code = 97135-0) Normal [facility] DOPPLER SCROTUM [id number] 00:41:40IMPRESSION: 1. No evidence of testicular torsion.2. Right epididymitis. Associated right scrotal pyocele.3. Small left hydrocele.4. Bilateral varicoceles. Dictated By: Roe Joyner MD, 07/04/2019 11:56 PM I have reviewed the study and agree with the findings in this report. Signed By: Michael Rivas MD, 07/05/2019 12:41 AM Interface, Rad/Mammog In - 07/05/2019 12:46 AM CSTEXAM: Scrotal Ultrasound with DuplexINDICATION: right scrotal pain and swelling COMPARISON: None TECHNIQUE: Transverse and longitudinal images were obtained of thescrotum with grayscale imaging, color Doppler and spectral waveformanalysis. FINDINGS :Right testis: Size: 4 x 3 x 3.1 cm, normal in size. Echogenicity: Amanda l Mass/Cysts: NoneLeft testis: Size: 4.3 x 2.2 x 2.8 cm, normal in size . Echogenicity: Normal Mass/Cysts: NoneEpididymis: Appearance: Rig ht Epididymal head 2.1 x 1.0 x 1.6 cm. Theepididymal tail is boggy and shows dif fusely increased vascularityThe left epididymal head measures 1.1 x 0.7 x 0.9 cm . No focal lesions.Normal vascularity. Mass/Cysts: 0.2 x 0.3 x 0.2 cm right epididymal head anechoicfocus, consistent with a simple cyst versus spermatocele .Extratesticular:Masses: NoneHydrocele: Moderate right complex hydrocele with ec hogenic internalnonvascular septations. Small left hydrocele.Varicocele: Bilater al varicoceles.Doppler:Normal arterial flow to both testes and symmetrical flow on colorDoppler evaluation is seen. No evidence of testicular torsion. IMPRESSIO NIMPRESSION: 1. No evidence of testicular torsion.2. Right epididymitis. Assoc iated right scrotal pyocele.3. Small left hydrocele.4. Bilateral varicoceles.D ictated By: Roe Joyner MD, 07/04/2019 11:56 PMI have reviewed the stud y and agree with the findings in this report.Signed By: Michael Rivas MD, 12:41 [facility]/S [id number] 00:41:40IMPRESSION: 1. No evidence of testicular torsion.2. Right epididymitis. Associated right scrotal pyocele.3. Small left hydrocele.4. Bilateral varicoceles. Dictated By: Roe Joyner MD, 07/04/2019 11:56 PM I have reviewed the study and agree with the findings in this report. Signed By: Michael Rivas MD, 07/05/2019 12:41 AM Interface, Rad/Mammog In - 07/05/2019 12:46 AM CSTEXAM: Scrotal Ultrasound with DuplexINDICATION: right scrotal pain and swelling COMPARISON: None TECHNIQUE: Transverse and longitudinal images were obtained of thescrotum with grayscale imaging, color Doppler and spectral waveformanalysis. FINDINGS:Right testis: Size: 4 x 3 x 3.1 cm, normal in size. Echogenicity: Normal Mass/Cysts: NoneLeft testis: Size: 4.3 x 2.2 x 2.8 cm, normal in size. Echogenicity: Normal Mass/Cysts: NoneEpididymis: Appearance: Right Epididymal head 2.1 x 1.0 x 1.6 cm. Theepididymal tail is boggy and shows diffusely increased vascularityThe left epididymal head measures 1.1 x 0.7 x 0.9 cm. No focal lesions.Normal vascularity. Mass/Cysts: 0.2 x 0.3 x 0.2 cm right epididymal head anechoicfocus, consistent with a simple cyst versus spermatocele .Extratesticular:Masses: NoneHydrocele: Moderate right complex hydrocele with ec hogenic internalnonvascular septations. Small left hydrocele.Varicocele: Bilater al varicoceles.Doppler:Normal arterial flow to both testes and symmetrical flow on colorDoppler evaluation is seen. No evidence of testicular torsion. IMPRESSIO NIMPRESSION: 1. No evidence of testicular torsion.2. Right epididymitis. Assoc iated right scrotal pyocele.3. Small left hydrocele.4. Bilateral varicoceles.D ictated By: Roe Joyner MD, 07/04/2019 11:56 PMI have reviewed the stud y and agree with the findings in this report.Signed By: Michael Rivas MD, 12:41 [facility] [id number] 23:13:00* Test Item Value Reference Range Interpretation Comments Bilirubin, Total (test code = 2885-2) 0.3 mg/dL 0.2-1.2 Alkaline Phosphatase (test code = 06053129) 87 U/L 34-104 AST (test code = 03884523) 9 U/L 13-39 L Direct Bilirubin (test code = 1968-7) 0.1 mg/dL 0-0.2 ALT (test code = 81755663) 12 U/L 7-52 Albumin (test code = 78443-9) 4.4 g/dL 4.2-5.5 Lab Interpretation (test code = 45322-9) [facility] 22:54:00* Test Item Value Reference Range Interpretation Comments WBC (test code = 6690-2) 9.1 K/uL 4.5-12 RBC (test code = 789-8) 4.08 4.60- 6.20 M/uL L Hemoglobin (test code = 718-7) 12.8 g/dL 14-18 L Hematocrit (test code = 4544-3) 37.9 % 40-54 L MCV (test code = 787-2) 92.9 fL 82-92 H MCH (test code = 785-6) 31.4 pg 27-31 H MCHC (test code = 786-4) 33.8 g/dL 32-36 RDW (test code = 18470-9) 40.5 fL 35.1-43.9 Platelet (test code = 777-3) 237 K/uL 150-400 Mean Platelet Volume (test code = 77116-2) 11.2 fL 9.4-12.4 Percent NRBC (test code = 26507695) 0.0 % Lab Interpretation (test code = 48497-8) Abnormal [id number] [facility]* Test Item Value Reference Range Interpretation Comments Color (test code = 98418082) Straw Colorless, Straw, Yellow Clarity (test code = 33697751) Clear Clear Spec [place], Ur (test code = 06293626) 1.010 1.001-1.035 pH, Ur (test code = 83574958) 7.0 5.0-8.0 Protein, Ur (test code = 44324333) Negative Negative mg/dL Glucose, Ur (test code = 31996119) Negative Negative mg/dL Ketone, Ur (test code = 15288864) Negative Negative mg/dL Bilirubin, Ur (test code = 99075015) Negative Negative mg/dL Nitrite, Ur (test code = 01260824) Negative Negative Leukocyte (test code = 26399702) Negative Negative mg/dL Blood, Ur (test code = 49325326) Negative Negative mg/dL Urobilinogen, Ur (test code = 40777650) <1.0 <1.0 EU/dL Lab Interpretation (test code = 69218-1) Normal [facility] BMP POC docked [id number] 22:21:00* Test Item Value Reference Range Interpretation Comments Sodium POC (test code = 17875372) 139 mmol/L 136-145 Potassium POC (test code = 78695403) 4.0 mmol/L 3.5-5.1 Chloride POC (test code = 23540040) 102 mmol/L 98-107 TCO2 POC (test code = 33011776) 27 mmol/L 21-32 Urea Nitrogen POC (test code = 50084099) 15 mg/dL 7-18 Creatinine POC (test code = 25841131) 0.9 mg/dL 0.6-1.3 Glucose POC (test code = 61472951) 113 mg/dL 74-106 H Ionized Calcium POC (test code = 91781558) 1.20 mmol/L 1.15-1.29 GFR, Estimated (test code = 42870029) >90 >=90 mL/min/1.73 m2 Hemoglobin POC (test code = 12112217) 13.3 g/dL 12-16 --- Hematocrit POC (test code = 34064527) 39.0 % 37-47 Lab Interpretation (test code = 57920-5) Abnormal formerly [facility] W/AUTO [id number] 08:31:00* Test Item Value Reference Range Interpretation Comments WHITE BLOOD CELL (test code = WBC) 11.0 K/mm3 4.5-12.5 N RED BLOOD CELL (test code = RBC) 4.71 mill/mm3 4.0-5.8 N HEMOGLOBIN (test code = HGB) 15.0 gram/dL 13.0-17.5 N HEMATOCRIT (test code = HCT) 42.1 % 42.0-52.0 N MEAN CELL VOLUME (test code = MCV) 89.4 fL 80-98 N MEAN CELL HGB (test code = MCH) 31.8 picogram 27.0-33.0 N MEAN CELL HGB CONCETRATION (test code = MCHC) 35.6 gram/dL 33.0-36. 0 N RED CELL DISTRIBUTION WIDTH (test code = RDW) 13.0 % 11.6-16. 2 N RED CELL DISTRIBUTION WIDTH SD (test code = RDW-SD) 41.5 fL 39 .2-49.5 N PLATELET COUNT (test code = PLT) 216 K/mm3 150-450 N MEAN PLATELET VOLUME (test code = MPV) 11.0 fL 6.7-11.0 N NEUTROPHIL % (test code = NT%) 49.5 % 39.0-69.0 N LYMPHOCYTE % (test code = LY%) 43.0 % 25.0-55.0 N MONOCYTE % (test code = MO%) 6.1 % 0.0-10.0 N EOSINOPHIL % (test code = EO%) 1.1 % 0.0-5.0 N BASOPHIL % (test code = BA%) 0.3 % 0.0-1.0 N NEUTROPHIL # (test code = NT#) 5.46 K/mm3 1.8-7.7 N LYMPHOCYTE # (test code = LY#) 4.73 K/mm3 1.0-5.0 N MONOCYTE # (test code = MO#) 0.67 K/mm3 0-0.8 N EOSINOPHIL # (test code = EO#) 0.12 K/mm3 0.0-0.5 N BASOPHIL # (test code = BA#) 0.03 K/mm3 0.0-0.2 N MANUAL DIFF REQUIRED (test code = MDIFF) NO WBC [id number] 08:31:00* Test Item Value Reference Range Interpretation Comments TOTAL CELLS COUNTED (test code = TCC) 100 #CELLS SEGMENTED NEUTROPHILS (test code = SEG) 53 % 39-69 N LYMPHOCYTE (test code = LYMPH) 40 % 25-55 N MONOCYTE (test code = MON) 6 % 0-10 N EOSINOPHIL (test code = EOS) 1 % 0.0-5.0 N MYELOCYTE (test code = MYELO) 0 % 0.0-0.0 N MORPHOLOGY COMMENT (test code = MOC) NORMAL PLATELET ESTIMATE (test code = PLTEST) ADEQUATE PLATELET MORPHOLOGY (test code = PLTMORPH) NORMAL URINALYSIS [id number] 08:22:00* Test Item Value Reference Range Interpretation Comments UA COLOR (test code = COLU) YELLOW YELLOW UA APPEARANCE (test code = APPU) HAZY CLEAR A UA GLUCOSE DIPSTICK (test code = DGLUU) NORMAL mg/dL NEGATIVE UA BILIRUBIN DIPSTICK (test code = BILU) NEGATIVE mg/dL NEGATIVE UA KETONE DIPSTICK (test code = KETU) neg mg/dL NEGATIVE UA SPECIFIC GRAVITY (test code = SGU) 1.015 1.001-1.035 UA BLOOD DIPSTICK (test code = AMERICO) 250 (4+) Luan/uL NEGATIVE A UA PH DIPSTICK (test code = EUGENE) 5.0 5.0-8.0 UA PROTEIN DIPSTICK (test code = PROU) 30 (1+) mg/dL Neg-15 A UA UROBILINIOGEN DIPSTICK (test code = URO) 1 mg/dL 0.0-0.2 A UA NITRITE DIPSTICK (test code = ROSE) NEGATIVE NEGATIVE UA LEUKOCYTE ESTERASE DIPSTICK (test code = LEUU) 500/uL (3+) uL NE GATIVE A UA WBC (test code = WBCU) TNTC per HPF 0-5 A IN SOME URINARY TRACT INFECTIONS THERE MAY NOT BE ENOUGHWBCs IN THE URINE TO TRIGGER AN AUTOMATIC (REFLEX) URINECULTURE. A SEPERATE ORDER FOR URINE CULTURE IS RECOMMENDEDIF THERE IS STRONG SUPPORT FOR A URINARY TRACT INFECTIONCLINICALLY. UA RBC (test code = RBCU) TNTC per HPF 0-5 A UA EPITHELIAL CELLS (test code = EPIU) Few (2-5/hpf) per HPF Few UA BACTERIA (test code = BACU) FEW per HPF NONE Urine Source? Clean CatchCOMPREHENSIVE METABOLIC [id number] 08:19:00* Test Item Value Reference Range Interpretation Comments SODIUM (test code = NA) 142 mmol/L 135-148 N POTASSIUM (test code = K) 3.4 mmol/L 3.5-5.1 L CHLORIDE (test code = CL) 107 mmol/L 101-109 N CARBON DIOXIDE (test code = CO2) 28.6 mmol/L 21-32 N ANION GAP (test code = GAP) 10 mmol/L 10-20 N GLUCOSE (test code = GLU) 111 mg/dL 74-106 H BLOOD UREA NITROGEN (test code = BUN) 10 mg/dL 3-21 N CREATININE (test code = CREAT) 1.00 mg/dL 0.55-1.3 N BUN/CREATININE RATIO (test code = BUN/CREA) 10.0 10-20 N TOTAL PROTEIN (test code = PROT) 6.8 g/dL 6.5-8.4 N ALBUMIN (test code = ALB) 3.2 g/dL 3.4-4.8 L GLOBULIN (test code = GLOB) 3.6 G/DL 1-10 N ALBUMIN/GLOBULIN RATIO (test code = A/G) 0.9 RATIO 0.75-1.50 N CALCIUM (test code = CA) 8.7 mg/dL 8.4-10.2 N BILIRUBIN TOTAL (test code = BILT) 0.30 mg/dL 0.0-1.0 N SGOT/AST (test code = AST) 16 U/L 6-32 N SGPT/ALT (test code = ALT) 36 U/L 12-78 N N ote: Change in REFERENCE RANGE due to new reagent method. ALKALINE PHOSPHATASE TOTAL (test code = ALKP) 94 U/L 38-126 N URINALYSIS [id number] 08:16:00* Test Item Value Reference Range Interpretation Comments UA COLOR (test code = COLU) YELLOW YELLOW UA APPEARANCE (test code = APPU) HAZY CLEAR A UA GLUCOSE DIPSTICK (test code = DGLUU) NORMAL mg/dL NEGATIVE UA BILIRUBIN DIPSTICK (test code = BILU) NEGATIVE mg/dL NEGATIVE UA KETONE DIPSTICK (test code = KETU) neg mg/dL NEGATIVE UA SPECIFIC GRAVITY (test code = SGU) 1.015 1.001-1.035 UA BLOOD DIPSTICK (test code = AMERICO) 250 (4+) Luan/uL NEGATIVE A UA PH DIPSTICK (test code = EUGENE) 5.0 5.0-8.0 UA PROTEIN DIPSTICK (test code = PROU) 30 (1+) mg/dL Neg-15 A UA UROBILINIOGEN DIPSTICK (test code = URO) 1 mg/dL 0.0-0.2 A UA NITRITE DIPSTICK (test code = ROSE) NEGATIVE NEGATIVE UA LEUKOCYTE ESTERASE DIPSTICK (test code = LEUU) 500/uL (3+) uL NE GATIVE A UA WBC (test code = WBCU) per HPF 0-5 Urine Source? Clean CatchCOMPREHENSIVE METABOLIC [id number] 08:16:00* Test Item Value Reference Range Interpretation Comments SODIUM (test code = NA) 142 mmol/L 135-148 N POTASSIUM (test code = K) 3.4 mmol/L 3.5-5.1 L CHLORIDE (test code = CL) 107 mmol/L 101-109 N CARBON DIOXIDE (test code = CO2) 28.6 mmol/L 21-32 N ANION GAP (test code = GAP) 10 mmol/L 10-20 N GLUCOSE (test code = GLU) 111 mg/dL 74-106 H BLOOD UREA NITROGEN (test code = BUN) 10 mg/dL 3-21 N CREATININE (test code = CREAT) 1.00 mg/dL 0.55-1.3 N BUN/CREATININE RATIO (test code = BUN/CREA) 10.0 10-20 N TOTAL PROTEIN (test code = PROT) gram/dL 6.4-8.2 ALBUMIN (test code = ALB) g/dL 3.4-5.0 GLOBULIN (test code = GLOB) g/dL 2.7-4.2 ALBUMIN/GLOBULIN RATIO (test code = A/G) 0.75-1.50 CALCIUM (test code = CA) 8.7 mg/dL 8.4-10.2 N BILIRUBIN TOTAL (test code = BILT) mg/dL 0.2-1.2 SGOT/AST (test code = AST) IUnit/L 15-37 SGPT/ALT (test code = ALT) U/L 10-69 ALKALINE PHOSPHATASE TOTAL (test code = ALKP) IUnit/L 45-117 CBC W/AUTO [id number] 08:08:00* Test Item Value Reference Range Interpretation Comments WHITE BLOOD CELL (test code = WBC) 11.0 K/mm3 4.5-12.5 N RED BLOOD CELL (test code = RBC) 4.71 mill/mm3 4.0-5.8 N HEMOGLOBIN (test code = HGB) 15.0 gram/dL 13.0-17.5 N HEMATOCRIT (test code = HCT) 42.1 % 42.0-52.0 N MEAN CELL VOLUME (test code = MCV) 89.4 fL 80-98 N MEAN CELL HGB (test code = MCH) 31.8 picogram 27.0-33.0 N MEAN CELL HGB CONCETRATION (test code = MCHC) 35.6 gram/dL 33.0-36. 0 N RED CELL DISTRIBUTION WIDTH (test code = RDW) 13.0 % 11.6-16. 2 N RED CELL DISTRIBUTION WIDTH SD (test code = RDW-SD) 41.5 fL 39 .2-49.5 N PLATELET COUNT (test code = PLT) 216 K/mm3 150-450 N MEAN PLATELET VOLUME (test code = MPV) 11.0 fL 6.7-11.0 N NEUTROPHIL % (test code = NT%) 49.5 % 39.0-69.0 N LYMPHOCYTE % (test code = LY%) 43.0 % 25.0-55.0 N MONOCYTE % (test code = MO%) 6.1 % 0.0-10.0 N EOSINOPHIL % (test code = EO%) 1.1 % 0.0-5.0 N BASOPHIL % (test code = BA%) 0.3 % 0.0-1.0 N NEUTROPHIL # (test code = NT#) 5.46 K/mm3 1.8-7.7 N LYMPHOCYTE # (test code = LY#) 4.73 K/mm3 1.0-5.0 N MONOCYTE # (test code = MO#) 0.67 K/mm3 0-0.8 N EOSINOPHIL # (test code = EO#) 0.12 K/mm3 0.0-0.5 N BASOPHIL # (test code = BA#) 0.03 K/mm3 0.0-0.2 N MANUAL DIFF REQUIRED (test code = MDIFF) NO WBC [id number] 08:08:00* Test Item Value Reference Range Interpretation Comments TOTAL CELLS COUNTED (test code = TCC) #CELLS SEGMENTED NEUTROPHILS (test code = SEG) % 39-69 LYMPHOCYTE (test code = LYMPH) % 25-55 MONOCYTE (test code = MON) % 0-10 EOSINOPHIL (test code = EOS) % 0.0-5.0 CABOT RINGS (test code = CAB) MORPHOLOGY COMMENT (test code = MOC) PLATELET ESTIMATE (test code = PLTEST) PLATELET MORPHOLOGY (test code = PLTMORPH) CBC W/AUTO [id number] 08:08:00* Test Item Value Reference Range Interpretation Comments WHITE BLOOD CELL (test code = WBC) 11.0 K/mm3 4.5-12.5 N RED BLOOD CELL (test code = RBC) 4.71 mill/mm3 4.0-5.8 N HEMOGLOBIN (test code = HGB) 15.0 gram/dL 13.0-17.5 N HEMATOCRIT (test code = HCT) 42.1 % 42.0-52.0 N MEAN CELL VOLUME (test code = MCV) 89.4 fL 80-98 N MEAN CELL HGB (test code = MCH) 31.8 picogram 27.0-33.0 N MEAN CELL HGB CONCETRATION (test code = MCHC) 35.6 gram/dL 33.0-36. 0 N RED CELL DISTRIBUTION WIDTH (test code = RDW) 13.0 % 11.6-16. 2 N RED CELL DISTRIBUTION WIDTH SD (test code = RDW-SD) 41.5 fL 39 .2-49.5 N PLATELET COUNT (test code = PLT) 216 K/mm3 150-450 N MEAN PLATELET VOLUME (test code = MPV) 11.0 fL 6.7-11.0 N NEUTROPHIL % (test code = NT%) 49.5 % 39.0-69.0 N LYMPHOCYTE % (test code = LY%) 43.0 % 25.0-55.0 N MONOCYTE % (test code = MO%) 6.1 % 0.0-10.0 N EOSINOPHIL % (test code = EO%) 1.1 % 0.0-5.0 N BASOPHIL % (test code = BA%) 0.3 % 0.0-1.0 N NEUTROPHIL # (test code = NT#) 5.46 K/mm3 1.8-7.7 N LYMPHOCYTE # (test code = LY#) 4.73 K/mm3 1.0-5.0 N MONOCYTE # (test code = MO#) 0.67 K/mm3 0-0.8 N EOSINOPHIL # (test code = EO#) 0.12 K/mm3 0.0-0.5 N BASOPHIL # (test code = BA#) 0.03 K/mm3 0.0-0.2 N MANUAL DIFF REQUIRED (test code = MDIFF) NO WBC [id number] 08:08:00* Test Item Value Reference Range Interpretation Comments TOTAL CELLS COUNTED (test code = TCC) #CELLS SEGMENTED NEUTROPHILS (test code = SEG) % 39-69 LYMPHOCYTE (test code = LYMPH) % 25-55 MONOCYTE (test code = MON) % 0-10 EOSINOPHIL (test code = EOS) % 0.0-5.0 CABOT RINGS (test code = CAB) MORPHOLOGY COMMENT (test code = MOC) PLATELET ESTIMATE (test code = PLTEST) PLATELET MORPHOLOGY (test code = PLTMORPH) CBC W/AUTO [id number] 08:08:00* Test Item Value Reference Range Interpretation Comments WHITE BLOOD CELL (test code = WBC) 11.0 K/mm3 4.5-12.5 N RED BLOOD CELL (test code = RBC) 4.71 mill/mm3 4.0-5.8 N HEMOGLOBIN (test code = HGB) 15.0 gram/dL 13.0-17.5 N HEMATOCRIT (test code = HCT) 42.1 % 42.0-52.0 N MEAN CELL VOLUME (test code = MCV) 89.4 fL 80-98 N MEAN CELL HGB (test code = MCH) 31.8 picogram 27.0-33.0 N MEAN CELL HGB CONCETRATION (test code = MCHC) 35.6 gram/dL 33.0-36. 0 N RED CELL DISTRIBUTION WIDTH (test code = RDW) 13.0 % 11.6-16. 2 N RED CELL DISTRIBUTION WIDTH SD (test code = RDW-SD) 41.5 fL 39 .2-49.5 N PLATELET COUNT (test code = PLT) 216 K/mm3 150-450 N MEAN PLATELET VOLUME (test code = MPV) 11.0 fL 6.7-11.0 N NEUTROPHIL % (test code = NT%) 49.5 % 39.0-69.0 N LYMPHOCYTE % (test code = LY%) 43.0 % 25.0-55.0 N MONOCYTE % (test code = MO%) 6.1 % 0.0-10.0 N EOSINOPHIL % (test code = EO%) 1.1 % 0.0-5.0 N BASOPHIL % (test code = BA%) 0.3 % 0.0-1.0 N NEUTROPHIL # (test code = NT#) 5.46 K/mm3 1.8-7.7 N LYMPHOCYTE # (test code = LY#) 4.73 K/mm3 1.0-5.0 N MONOCYTE # (test code = MO#) 0.67 K/mm3 0-0.8 N EOSINOPHIL # (test code = EO#) 0.12 K/mm3 0.0-0.5 N BASOPHIL # (test code = BA#) 0.03 K/mm3 0.0-0.2 N MANUAL DIFF REQUIRED (test code = MDIFF) NO WBC [id number] 08:08:00* Test Item Value Reference Range Interpretation Comments TOTAL CELLS COUNTED (test code = TCC) #CELLS SEGMENTED NEUTROPHILS (test code = SEG) % 39-69 LYMPHOCYTE (test code = LYMPH) % 25-55 MONOCYTE (test code = MON) % 0-10 EOSINOPHIL (test code = EOS) % 0.0-5.0 MORPHOLOGY COMMENT (test code = MOC) PLATELET ESTIMATE (test code = PLTEST) PLATELET MORPHOLOGY (test code = PLTMORPH) CBC W/AUTO [id number] 08:08:00* Test Item Value Reference Range Interpretation Comments WHITE BLOOD CELL (test code = WBC) 11.0 K/mm3 4.5-12.5 N RED BLOOD CELL (test code = RBC) 4.71 mill/mm3 4.0-5.8 N HEMOGLOBIN (test code = HGB) 15.0 gram/dL 13.0-17.5 N HEMATOCRIT (test code = HCT) 42.1 % 42.0-52.0 N MEAN CELL VOLUME (test code = MCV) 89.4 fL 80-98 N MEAN CELL HGB (test code = MCH) 31.8 picogram 27.0-33.0 N MEAN CELL HGB CONCETRATION (test code = MCHC) 35.6 gram/dL 33.0-36. 0 N RED CELL DISTRIBUTION WIDTH (test code = RDW) 13.0 % 11.6-16. 2 N RED CELL DISTRIBUTION WIDTH SD (test code = RDW-SD) 41.5 fL 39 .2-49.5 N PLATELET COUNT (test code = PLT) 216 K/mm3 150-450 N MEAN PLATELET VOLUME (test code = MPV) 11.0 fL 6.7-11.0 N NEUTROPHIL % (test code = NT%) 49.5 % 39.0-69.0 N LYMPHOCYTE % (test code = LY%) 43.0 % 25.0-55.0 N MONOCYTE % (test code = MO%) 6.1 % 0.0-10.0 N EOSINOPHIL % (test code = EO%) 1.1 % 0.0-5.0 N BASOPHIL % (test code = BA%) 0.3 % 0.0-1.0 N NEUTROPHIL # (test code = NT#) 5.46 K/mm3 1.8-7.7 N LYMPHOCYTE # (test code = LY#) 4.73 K/mm3 1.0-5.0 N MONOCYTE # (test code = MO#) 0.67 K/mm3 0-0.8 N EOSINOPHIL # (test code = EO#) 0.12 K/mm3 0.0-0.5 N BASOPHIL # (test code = BA#) 0.03 K/mm3 0.0-0.2 N MANUAL DIFF REQUIRED (test code = MDIFF) NO WBC [id number] 08:08:00* Test Item Value Reference Range Interpretation Comments TOTAL CELLS COUNTED (test code = TCC) #CELLS SEGMENTED NEUTROPHILS (test code = SEG) % 39-69 LYMPHOCYTE (test code = LYMPH) % 25-55 MONOCYTE (test code = MON) % 0-10 MORPHOLOGY COMMENT (test code = MOC) PLATELET ESTIMATE (test code = PLTEST) PLATELET MORPHOLOGY (test code = PLTMORPH) CBC W/AUTO [id number] 08:04:00* Test Item Value Reference Range Interpretation Comments WHITE BLOOD CELL (test code = WBC) 11.0 K/mm3 4.5-12.5 N RED BLOOD CELL (test code = RBC) 4.71 mill/mm3 4.0-5.8 N HEMOGLOBIN (test code = HGB) 15.0 gram/dL 13.0-17.5 N HEMATOCRIT (test code = HCT) 42.1 % 42.0-52.0 N MEAN CELL VOLUME (test code = MCV) 89.4 fL 80-98 N MEAN CELL HGB (test code = MCH) 31.8 picogram 27.0-33.0 N MEAN CELL HGB CONCETRATION (test code = MCHC) 35.6 gram/dL 33.0-36. 0 N RED CELL DISTRIBUTION WIDTH (test code = RDW) 13.0 % 11.6-16. 2 N RED CELL DISTRIBUTION WIDTH SD (test code = RDW-SD) 41.5 fL 39 .2-49.5 N PLATELET COUNT (test code = PLT) 216 K/mm3 150-450 N MEAN PLATELET VOLUME (test code = MPV) 11.0 fL 6.7-11.0 N NEUTROPHIL % (test code = NT%) 49.5 % 39.0-69.0 N LYMPHOCYTE % (test code = LY%) 43.0 % 25.0-55.0 N MONOCYTE % (test code = MO%) 6.1 % 0.0-10.0 N EOSINOPHIL % (test code = EO%) 1.1 % 0.0-5.0 N BASOPHIL % (test code = BA%) 0.3 % 0.0-1.0 N NEUTROPHIL # (test code = NT#) 5.46 K/mm3 1.8-7.7 N LYMPHOCYTE # (test code = LY#) 4.73 K/mm3 1.0-5.0 N MONOCYTE # (test code = MO#) 0.67 K/mm3 0-0.8 N EOSINOPHIL # (test code = EO#) 0.12 K/mm3 0.0-0.5 N BASOPHIL # (test code = BA#) 0.03 K/mm3 0.0-0.2 N MANUAL DIFF REQUIRED (test code = MDIFF) NO - CT ABD PELVIS W/O [id number] 08:03:00 Name: SHANIKA SHEPHERD JR [facility] : 1975 Age/S: 43 / M [address] [facility] Unit #: [id number] Loc: [place] [address] Phys: Bradly Brantley MD Acct: [id number] Dis Date: Status: REG ER PHONE #: [phone] Exam Date: 08/24/2018 0739 FAX #: [phone] Reason: BAck pain+hematuria EXAMS: CPT CODE: [id number] CT ABD PELVIS W/O CONT [id number] EXAM: CT of the abdomen and pelvis without contrast; INFORMATION: Hematuria, back pain; TECHNIQUE: CT dose reduction protocol; Renal stone protocol; FINDINGS: The kidneys are of normal size and shape; no calcifications and no hydronephrosis. No evidence of urete ral stones. No evidence of appendicitis or other acute bowel abnormalities . A normal appendix is seen. Parenchymal organs of the abdomen and the biliary system are unremarkable. No pelvic mass lesions; no abno rmal fluid collections. Minor calcified plaques in the abdominal aorta and the common iliac arteries. Scans through the lung bases are clear. IMPRESSION: 1. No evidence of renal or ureteral stones or of obstructive uropathy. 2. No evidence of acute abdominal or pelvic abnormalities. at 0803 Reported and signed by: Abdi Lan M.D. CC: Bradly Huerta MD Technologist:FREDY WRAY, RT(R),CT CTDI: DLP: Trnscb Date/Time: 08/24/2018 (802) DanikaW Orig Print D/T: S: 08/24/2018 (805) CTD I: DLP: PAGE [address] BRAIN WO [place] [address] Patient Name: WOO SHEPHERD MR #: [id number] : 1975 Age/Sex: 41/M Req #: [id number] Adm Physician: Ordered by: HARITHA HOLLAND MD Report #: [id number] Location: ER Room/Bed: Procedure: [id number] CT/CT BRAIN WO Exam Date: Exam Time: 1652 REPORT STATUS: Signed Exam: Head CT without contrast History: Tremors Comparison studies: None Technique: Axial images were obtained from the skull base to the vertex. Coronal and sagittal images reconstructed from the axial data. Intravenous co ntrast: None Findings: Scalp: No abnormalities. Bones: No fractures, blastic or lytic lesions. Brain sulci: Appropriate for age. Ventricles: Normal in size and configuration. No hydrocephalus. Extra-axial spaces: No mas ses, no fluid collection. Parenchyma: No abnormal densities. No mass es, acute hemorrhage, acute or chronic vascular insults. Sellar/suprasellar region: No abnormalities. Craniocervical junction: Patent foramen magnum. No Chiari one malformation. IMPRESSION: No intracranial abnormalities . Signed by: Dr. Kat Conrad M.D. on 05/06/2017 5:28 PM Dictated By: KAT CONRAD MD 27 Transcribed By: REGINA on 05/06/171727 COPY TO: HARITHA HOLLAND MD
[2020-02-28 13:53] LABS: BASOPHILS % 0.4 % (0.0-1.0); EOSINOPHILS # (AUTO) 0.1 (0.0-0.4); EOSINOPHILS % 1.2 % (0.0-6.0); LYMPHOCYTES # (AUTO) 3.4 (1.0-3.2); LYMPHOCYTES % 32.8 % (18.0-39.1); MEAN CORPUSCULAR HEMOGLOBIN 31.1 pg (28-32); MEAN CORPUSCULAR HGB CONC 35.4 g/dL (31-35); MEAN CORPUSCULAR VOLUME 87.9 fL (81-99); MONOCYTES # (AUTO) 0.7 (0.2-0.8); NEUTROPHILS # (AUTO) 6.1 (2.1-6.9); NEUTROPHILS % 57.6 % (38.7-80.0); PLATELET COUNT 302 x10e3/uL (140-360); RED BLOOD COUNT 5.46 x10e6/uL (4.3-5.7); RED CELL DISTRIBUTION WIDTH 12.3 % (11.7-14.4)
[2020-02-28 14:10] LABS: INR 0.84; PROTHROMBIN TIME 11.9 seconds (11.9-14.5)
[2020-02-28 14:21] LABS: ALANINE AMINOTRANSFERASE 28 IU/L (0-55); ALBUMIN 3.7 g/dL (3.5-5.0); ALBUMIN/GLOBULIN RATIO 0.9 (0.8-2.0); ALKALINE PHOSPHATASE 104 IU/L (40-150); ANION GAP 16.3 mmol/L (8-16); BLOOD UREA NITROGEN 10 mg/dL (7-26); BUN/CREATININE RATIO 11 (6-25); CALCIUM 9.3 mg/dL (8.4-10.2); CARBON DIOXIDE 20 mmol/L (22-29); CHLORIDE 105 mmol/L (98-107); CREATININE, SERUM 0.94 mg/dL (0.72-1.25); EST GLOMERULAR FILTRATION RATE > 60 ML/MIN (60-); GLUCOSE 102 mg/dL (74-118); POTASSIUM 4.3 mmol/L (3.5-5.1); SODIUM 137 mmol/L (136-145)
[2020-02-28] MEDS ORDERED: MORPHINE SULFATE INJ 4 MG/ML INJ 1ML IV ONE (15:00)
[2020-02-28] MEDS ORDERED: DICYCLOMINE HCL 20 MG/2 ML VIAL IM ONE ×2 (15:27→15:45)
--- NOTE | 2020-02-28 15:38 | Diagnostic Imaging Report ---
EXAM: CT Abdomen and Pelvis WITHOUT intravenous contrast INDICATION: Generalized abdominal pain COMPARISON: 04/01/2015 TECHNIQUE: Abdomen and pelvis were scanned utilizing a multidetector helical scanner from the lung base to the pubic symphysis without administration of IV contrast. Coronal and sagittal reformations were obtained. Routine technique was performed. IV CONTRAST: None ORAL CONTRAST: None COMPLICATIONS: None RADIATION DOSE: Total DLP: 931 mGy*cm Dose modulation, iterative reconstruction, and/or weight based adjustment of the mA/kV was utilized to reduce the radiation dose to as low as reasonably achievable. FINDINGS: Limited evaluation due to lack of IV and oral contrast. LOWER THORAX: There is a 5 mm solid lung nodule at the left lung base, stable compared to 2015 exam. HEPATOBILIARY: No focal hepatic lesions. No biliary ductal dilatation. The gallbladder appears unremarkable. SPLEEN: No splenomegaly. PANCREAS: No focal masses or ductal dilatation. ADRENALS: 1.4 cm left medial adrenal limb nodule is noted with internal Hounsfield of approximately 1 consistent with an adenoma. Right adrenal gland is unremarkable. KIDNEYS/URETERS: Negative for hydronephrosis, perinephric stranding or obstructing calculus. PELVIC ORGANS/BLADDER: Urinary bladder is unremarkable. Prostate is within normal limits for size. PERITONEUM / RETROPERITONEUM: No free air or fluid. LYMPH NODES: No lymphadenopathy. VESSELS: Unremarkable. GI TRACT: Limited due to lack of IV and oral contrast. Normal appendix is noted. Stomach and distal colon are decompressed limiting evaluation. No surrounding inflammatory changes are identified. Negative for obstruction BONES AND SOFT TISSUES: Negative for acute osseous abnormality. No suspicious lytic or blastic lesion is identified. Soft tissues are unremarkable. IMPRESSION: Limited noncontrast CT of the abdomen and pelvis is negative for acute process. Signed by: Ghulam Duenas MD on 02/28/2020 3:34 PM
[2020-02-28 16:05] VITALS: BP 118/96
[2020-02-28 16:08] LABS: AMPHETAMINES SCREEN,URINE NEGATIVE (NEGATIVE); BENZODIAZEPINES SCREEN,URINE NEGATIVE (NEGATIVE); PHENCYCLIDINE SCREEN,URINE NEGATIVE (NEGATIVE)
== END 2020-02-28 16:55 | disposition home or self-care (01) ==
LOC: ER 13:00
DX: K92.2 Gastrointestinal hemorrhage, unspecified (principal); I10 Essential (primary) hypertension; F12.90 Cannabis use, unspecified, uncomplicated; Z11.59 Encounter for screening for other viral diseases; Z87.11 Personal history of peptic ulcer disease
CPT/HCPCS: 36415; 74176; 80053; 80307; 83690; 85025; 85610; 86850; 86900; 93005; 99283; J0500; U0002

== ENCOUNTER 2021-10-22 13:15 | Emergency (ER) | payer OTHER, SELFPAY ==
[~2021-10-22] VITALS: Ht 182.9 cm; Wt 131.5 kg
[2021-10-22] MEDS ORDERED: LIDOCAINE 4% PATCH TP STA (13:27)
[2021-10-22] MEDS ORDERED: KETOROLAC TROMETHAMINE 60 MG/2 ML VIAL IM ONE (13:30)
== END 2021-10-22 14:54 | disposition home or self-care (01) ==
LOC: ER 13:20
DX: M54.50 Low back pain, unspecified (principal); M25.531 Pain in right wrist; W20.8XXA Other cause of strike by thrown, projected or falling object, initial encounter; Y92.89 Other specified places as the place of occurrence of the external cause; I10 Essential (primary) hypertension; K57.90 Diverticulosis of intestine, part unspecified, without perforation or abscess without bleeding; Z87.19 Personal history of other diseases of the digestive system
CPT/HCPCS: 73110; 74176; 99283; J1885